=== PATIENT | female | born 1950 | race Two or more races ===

== ENCOUNTER → 2021-04-12 | Outpatient (CLI) | payer MEDICARE, MEDICAID | END | disposition home or self-care (01) | LOC: US 08:33 | PROVIDERS: ATTEND Internal Medicine Gastroenterology | DX: K80.20 Calculus of gallbladder without cholecystitis without obstruction (principal); K75.3 Granulomatous hepatitis, not elsewhere classified; R10.9 Unspecified abdominal pain | CPT/HCPCS: 76700 ==